=== PATIENT | male | born 1965 | race Caucasian/White ===

== ENCOUNTER → 2017-07-10 | Day surgery (SDC) | payer BC ==
[2017-07-09 14:18] VITALS: BMI 29.5
[~2017-07-10] MED LIST: LIDOCAINE 1%/EPI 1:100000 (20 ML MULTI DOSE VIAL) ONE; LIDOCAINE 1%/EPI 1:100000 (50 ML MULTI DOSE VIAL) INF ONE; POVIDONE-IODINE OINTMENT 10% - 28.4 GM TUBE ONE; POVIDONE-IODINE OINTMENT 10% - 28.4 GM TUBE TP ONE
[2017-07-10 07:01] VITALS: TEMP 98.6
--- NOTE | 2017-07-10 08:42 | HP ---
History & Physical Update - History History: No Change - Physical Physical: No Change - Assessment Assessment: No Change - Plan Plan: No Change Currently as noted:: Left posterior-inferior scalp/neck mass; For excision
--- NOTE | 2017-07-10 08:43 | OP ---
Operative Note - Note: Operative Date: 07/10/17 Pre-Operative Diagnosis: Left posterior-inferior scalp/neck mass Operation: Excision of scalp/neck mass Post-Operative Diagnosis: Same as Pre-op Surgeon: Sami Goncalves Anesthesia: General Specimens Removed: Left scalp/neck mass Estimated Blood Loss (mls): 5 Operative Report Dictated: Yes
[2017-07-10 08:56] VITALS: PULSE 78
--- NOTE | 2017-07-10 10:21 | OP ---
DATE OF OPERATION: 07/10/2017 SURGEON: Ochoa Goncalves MD PREOPERATIVE DIAGNOSIS: Left posterior-inferior scalp/neck mass. POSTOPERATIVE DIAGNOSIS: Left posterior-inferior scalp/neck mass. PROCEDURE: Excision of left scalp/neck mass. SPECIMENS: Left scalp/neck mass. ESTIMATED BLOOD LOSS: 5 mL. DRAINS: None. ANESTHESIA: Local. REASON FOR PROCEDURE: This is a 52-year-old gentleman who presented to the office for evaluation of a left posterior-inferior scalp/neck mass. He states he had it in the past, and it was excised, but has recurred. Because of this, he was consented for excision of the mass. Risks and benefits of the procedure were explained. These included bleeding, infection, recurrence of the mass, wound dehiscence, wound infection, injury to surrounding structures including vessel injury, nerve injury, similar complications. He understood and signed informed consent. DESCRIPTION OF PROCEDURE: Patient was placed supine on the operating table. The mass was exposed and prepped and draped in the usual sterile fashion. Time-out was performed. Using lidocaine with epinephrine, the surrounding area was infiltrated after time-out was performed. An incision with a 15 blade scalpel was used to incise the skin and subcutaneous tissue. The mass was circumferentially dissected using Metzenbaum scissors. The contents appeared to be cystic in nature, and it was already feared to be ruptured. All contents that were noted were removed from the cavity and sent off the field as specimen. Hemostasis was achieved using electrocautery. The wound was irrigated. Then, 3-0 Vicryl sutures were used to close the deep dermal tissue, and 4-0 Biosyn was used to close the subcutaneous tissue. Sterile dressings were applied. The patient tolerated the procedure well and was transferred to the recovery room in stable condition. OCHOA GONCALVES M.D. [id number]
--- NOTE | 2017-07-10 11:35 | OP ---
ADDENDUM DATE OF OPERATION: 07/10/2017 Please add size of mass was 3 cm x 3 cm in size. Hermes [id number]
[2017-07-10 14:49] VITALS: BP 137/88
--- NOTE | 2017-07-11 13:11 | PATH ---
Surgical Pathology Report Patient Name: BRITTON BHAKTA [facility]. Rec. #: [id number] /Age/Gender: 1965 (Age: 52) / M Account: [id number] Location: [facility] SURGICAL Taken: 07/10/2017 Received: 07/10/2017 Reported: 07/11/2017 Physicians: Sami Goncalves M.D. Specimen(s) Received MASS OF SCALP Clinical History Localized swelling mass or lump, head Excision of left posterior-inferior scalp/neck mass Final Diagnosis SCALP, MASS, EXCISION: EPIDERMAL INCLUSION CYST. Electronically Signed Cailin Corado M.D. Gross Description Received in formalin labelled "scalp mass" is a 2.5 x 2.5 x 0.3 cm aggregate of macias caseous material. Totally submitted in one cassette. [facility]/07/10/2017 [facility]/07/10/2017
== END | disposition home or self-care (01) ==
LOC: JASU-SURG 06:19
PROVIDERS: ATTEND Surgery
PROC: 0HB0XZZ Excision of Scalp Skin, External Approach (ICD-10-PCS; principal; 2017-07-10 08:00)
DX: L72.0 Epidermal cyst (principal)
CPT/HCPCS: 88305-TC